=== PATIENT | male | born 1930 | race Caucasian/White ===

== ENCOUNTER 2016-11-02 16:15 | Emergency (ER) | payer MEDICARE ==
[2016-11-02 18:35] VITALS: BP 119/69
--- NOTE | 2016-11-02 19:37 | UC ---
Eliza Licea Erika, scribed for Darshana Dinh DO on 11/02/16 at 1806 . Dental HPI - HPI Summary HPI Summary: Patient is an 86-year-old male presenting to [facility] with his son with a CC of lower right gingiva pain starting around 10/30/2016 which he first noticed while eating. Patient has dentures. He reports that pain is aggravated by eating , and notes pain even when trying to chew mashed potatoes. Patient denies redness, swelling, drainage, or bleeding. He denies all other symptoms including fever, chills, confusion, unsteady gait, sore throat, ear ache, eye drainage, cough, SOB, chest pain, nausea, vomiting, and abdominal pain. Patient does not currently have a dentist. Hx HTN, hyperlipidemia, thyroid disease. Patient has prostate CA, and had a negative bone scan 3-4 mos ago. FHx HTN. Patient quit smoking and chewing tobacco about 60 years ago. - History of Current Complaint Chief Complaint: UCGeneralIllness Stated Complaint: SORE JAW LINE Time Seen by Provider: 11/02/16 16:55 Hx Obtained From: Patient, Family/Air Filler - Son Onset/Duration: Sudden Onset, Lasting Days, Still Present Severity: Moderate Pain Intensity: 6 Aggravating: Chewing Alleviating: Nothing - Allergies/Home Medications Allergies/Adverse Reactions: Allergies Allergy/AdvReac Type Severity Reaction Status Date / Time No Known Allergies Allergy Verified 11/02/16 17:13 Home Medications: Home Medications Aspirin Low Dose CHEW TAB* [Aspirin Low Dose TAB*] 81 mg PO DAILY 11/02/16 [ History Confirmed 11/02/16] Atorvastatin* [Lipitor*] 40 mg PO DAILY 11/02/16 [History Confirmed 11/02/16] Finasteride TAB* [Proscar TAB*] 5 mg PO DAILY 11/02/16 [History Confirmed ] Gemfibrozil TAB* [Lopid TAB*] 11/02/16 [History] Losartan Potassium 100 mg PO DAILY 11/02/16 [History Confirmed 11/02/16] Multiple Vitamins W/ Minerals [Multivitamin Adults] 1 tab PO DAILY 11/02/16 [ History Confirmed 11/02/16] PMH/Surg Hx/FS Hx/Imm Hx Endocrine History Of: Reports: Thyroid Disease, Dyslipidemia Cardiovascular History Of: Reports: Hypertension Cancer History Of: Reports: Prostate Cancer - Surgical History Surgical History: Yes Surgery Procedure, Year, and Place: ROTATOR CUFF - Family History Known Family History: Positive: Hypertension - Social History Occupation: Retired Alcohol Use: None Substance Use Type: None Smoking Status (MU): Former Smoker - and formerly chewed tobacco Review of Systems Constitutional: Negative Skin: Negative Eyes: Negative ENT: Other - see hpi Respiratory: Negative Cardiovascular: Negative Gastrointestinal: Negative Genitourinary: Negative Motor: Negative Neurovascular: Negative Musculoskeletal: Negative Neurological: Negative Psychological: Negative All Other Systems Reviewed And Are Negative: Yes Physical Exam Triage Information Reviewed: Yes Appearance: Well-Appearing, No Pain Distress, Well-Nourished Vital Signs: Initial Vital Signs Temp 98.7 F 11/02/16 17:05 Pulse 67 11/02/16 17:05 Resp 20 11/02/16 17:05 BP 117/69 11/02/16 17:05 Pulse Ox 95 11/02/16 17:05 Vital Signs Reviewed: Yes Eyes: Positive: Conjunctiva Clear. Negative: Discharge ENT: Positive: Pharynx normal. Negative: Hearing grossly normal - [facility] [place], Muffled/ hoarse voice Dental: Positive: Other: - 0.75 cm laceration that gapes - @ the right lower mandibular vestibule just right of midline. This is relatively deep with granulation tissue. Surrounding tissue is tender including in samuel posterior surface of the gingiva, though no defect is noted here. When observed with dentures in, the bottom of the dentures are found to be lying inside the laceration, preventing closure Neck: Positive: Supple, Nontender Respiratory: Positive: Lungs clear, Normal breath sounds, No respiratory distress, No accessory muscle use Cardiovascular: Positive: RRR, No Murmur Musculoskeletal Exam: Normal Neurological: Positive: Alert, Muscle Tone Normal Psychological Exam: Normal Psychological: Positive: Age Appropriate Behavior Skin Exam: Other - Warm, dry, normal color Dental Complaint Course/Dx - Differential Dx/Diagnosis Differential Diagnosis/Dx: Dental Abscess, Gingivitis Provider Diagnoses: Buccal laceration in the mandibular vestibule Discharge - Discharge Plan Condition: Stable Disposition: HOME Prescriptions: Amoxicillin CAP* [Amoxicillin 500 MG CAP*] 500 mg PO Q12H #20 cap Patient Education Materials: Soft Diet (ED), Laceration Without Closure (ED) Referrals: Jerry Moss MD [Primary Care Provider] - 4 Days (WE WANT TO KNOW THAT YOUR MOUTH IS HEALING. IF YOU CAN NOT GET IN WITH YOUR PCP OR A DENTIST, YOU CAN RETURN HERE FOR RE-EVALUATION.) Additional Instructions: DO NOT USE YOUR DENTURES AGAIN UNTIL THIS LACERATION HAS HEALED COMPLETELY. BEFORE YOU START TO USE THEM AGAIN, YOU SHOULD HAVE YOUR DENTURES AND YOUR MOUTH EVALUATED BY A DENTIST. IN THE MEAN TIME, YOU WILL WANT TO HAVE A SOFT DIET THAT DOES NOT REQUIRE CHEWING. AMOXICILLIN: Amoxicillin is a member of the penicillin family. It covers the germs likely to cause ear, bronchial, and urinary infections better than plain penicillin. Amoxicillin can be taken without regard to meals. Nausea after taking the medication is rare, but can occur. Diarrhea can occur, particularly in small children. Vaginal yeast infections and oral thrush in infants are also common. Contact your physician if these problems occur. Allergy to penicillins is common. If you have had an allergic reaction to any drug of the penicillin family, you should never take any other penicillin. Notify your doctor at once if you develop hives, itching, swelling, faintness, or shortness of breath. Less serious side effects can include nausea or diarrhea. ANY TIME YOU TAKE AN ANTIBIOTIC, IT IS IMPORTANT TO REPLENISH THE BODY'S BALANCE OF "GOOD" BACTERIA BY EATING HIGH QUALITY CULTURED FOOD SUCH YOGURT, SAURKRAUT OR DENYS CHI AND/OR TAKING A PROBIOTIC SUPPLEMENT. The documentation as recorded by the Eliza carroll Erika accurately reflects the service I personally performed and the decisions made by me, Darshana Dinh DO.
== END 2016-11-02 18:34 | disposition home or self-care (01) ==
LOC: UCEAST 16:15
DX: S01.512A Laceration without foreign body of oral cavity, initial encounter (principal); X58.XXXA Exposure to other specified factors, initial encounter; E07.9 Disorder of thyroid, unspecified; C61 Malignant neoplasm of prostate; E78.5 Hyperlipidemia, unspecified; I10 Essential (primary) hypertension; Z87.891 Personal history of nicotine dependence; Z79.82 Long term (current) use of aspirin
CPT/HCPCS: 99212; G0463